=== PATIENT | female | born 1930 | race Caucasian/White ===

== ENCOUNTER 2016-12-13 11:05 | Outpatient (CLI) | payer OTHER ==
[2016-12-13 11:25] VITALS: BMI 36.0
== END 2016-12-13 11:06 | disposition home or self-care (01) ==
LOC: AMBL 11:05
PROVIDERS: ATTEND Emergency Medicine
DX: R04.0 Epistaxis (principal); R51 Headache; I48.91 Unspecified atrial fibrillation; V47.5XXA Car driver injured in collision with fixed or stationary object in traffic accident, initial encounter

== ENCOUNTER 2016-12-13 11:17 | Emergency (ER) | payer OTHER ==
[2016-12-13 11:25] VITALS: BP 116/101; TEMP 98.3; BMI 36.0
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
[2016-12-13 12:04] LABS: BASOPHILS # (AUTO) 0.1 K/uL (0-0.2); BASOPHILS % (AUTO) 0.4 % (0.0-3.0); EOSINOPHILS # (AUTO) 0.1 K/ul (0.0-0.7); EOSINOPHILS % (AUTO) 0.5 % (0.0-7.0); HEMATOCRIT 34.6 % (37.0-47.0); HEMOGLOBIN 10.7 g/dl (12.0-16.0); IMMATURE GRANULOCYTE % (AUTO) 0.6 % (0.0-5.0); LYMPHOCYTES # (AUTO) 1.1 K/uL (0.60-3.4); LYMPHOCYTES % (AUTO) 8.7 (10.0-50.0); MEAN CORPUSCULAR HEMOGLOBIN 30.4 pg (27.0-31.0); MEAN CORPUSCULAR HGB CONC 30.9 (31.8-35.4); MEAN CORPUSCULAR VOLUME 98.3 fl (81.0-99.0); MONOCYTES # (AUTO) 0.7 K/uL (0.4-2.0); MONOCYTES % (AUTO) 5.7 (0-10); NEUTROPHILS # (AUTO) 10.4 K/ul (2.0-6.9); NEUTROPHILS % (AUTO) 84.1; PLATELET COUNT 239 10^3/uL (140-440); RED BLOOD COUNT 3.52 10^6/ul (4.20-5.40); WHITE BLOOD COUNT 12.38 K/ul (4.6-10.2)
[2016-12-13 12:23] LABS: PROTHROMBIN TIME 18.6 SEC (9.3-11.0)
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
[2016-12-13] MEDS ORDERED: SODIUM CHLORIDE 300 ML IV STA (12:57)
[2016-12-13 14:40] LABS: ALBUMIN 3.4 g/dL (3.4-5.0); ALBUMIN/GLOBULIN RATIO 1.17; ANION GAP 15.4; BILIRUBIN,TOTAL 0.34 mg/dL (0.00-1.20); BUN/CREATININE RATIO 22.55; CALCIUM 9.5 mg/dL (8.2-10.2); CREATININE 1.33 mg/dL (0.60-1.30); POTASSIUM 4.4 mmol/L (3.5-5.10); TOTAL PROTEIN 6.3 g/dL (5.8-8.1)
== END 2016-12-13 15:45 | disposition short-term general hospital (02) ==
LOC: ED 11:17
DX: R04.0 Epistaxis (principal); S09.92XA Unspecified injury of nose, initial encounter; I48.91 Unspecified atrial fibrillation; I10 Essential (primary) hypertension; E11.9 Type 2 diabetes mellitus without complications; V47.0XXA Car driver injured in collision with fixed or stationary object in nontraffic accident, initial encounter; Y92.510 Bank as the place of occurrence of the external cause
CPT/HCPCS: 36415; 80053; 85025; 85610; 93005; 93010; 96360; 99283; 99285

== ENCOUNTER 2016-12-13 15:46 | Outpatient (CLI) | payer OTHER ==
[2016-12-13 11:25] VITALS: BMI 36.0
== END 2016-12-13 15:47 | disposition home or self-care (01) ==
LOC: AMBL 15:46
PROVIDERS: ATTEND Emergency Medicine
DX: R04.0 Epistaxis (principal); I48.91 Unspecified atrial fibrillation

== ENCOUNTER 2018-03-04 09:31 | Outpatient (CLI) | END 2018-03-04 09:32 | disposition short-term general hospital (02) | LOC: AMBL 09:31 | PROVIDERS: ATTEND Internal Medicine | DX: M25.562 Pain in left knee (principal); M25.462 Effusion, left knee; R53.1 Weakness; R50.9 Fever, unspecified; I48.91 Unspecified atrial fibrillation; S80.12XA Contusion of left lower leg, initial encounter; S80.11XA Contusion of right lower leg, initial encounter ==

== ENCOUNTER 2018-06-06 10:08 | Outpatient (CLI) | END 2018-06-06 10:23 | disposition short-term general hospital (02) | LOC: AMBL 10:08 | PROVIDERS: ATTEND Internal Medicine | DX: R53.1 Weakness (principal); R47.81 Slurred speech; E16.2 Hypoglycemia, unspecified ==